=== PATIENT | female | born 1995 | race Hispanic/Latino ===

== ENCOUNTER 2019-04-29 06:12 | Emergency (ER) | payer BC, OTHER ==
[2019-04-29] MEDS ORDERED: PROMETHAZINE 25 MG/ML VIAL ONE (06:36)
[2019-04-29] MEDS ORDERED: NA CHLORIDE 0.9% 1,000 ML ONE (06:36)
[2019-04-29 06:38] LABS: Urine Blood 2+ (NEG); Urine Glucose NEGATIVE (NEG); Urine Protein 2+ (NEG); Urine Specific Gravity >1.030 (1.005-1.030); Urine pH 5.5 (5.0-7.0)
[2019-04-29 06:44] LABS: Urine Bacteria >50 /HPF (<20); Urine Culture Reflex Order NOT NEEDED; Urine RBC <5 /HPF (NONE SEEN)
[2019-04-29] MEDS ORDERED: CEFTRIAXONE/SWI 1gm 1 GM/10 ML SYR ONE (06:55)
[2019-04-29 06:58] LABS: Absolute Lymphocytes (CBC) 0.6 K/uL (0.7-4.9); Basophils % 0.2 % (0-1.3); Hematocrit 37.6 % (36.0-45.0); Lymphocytes % 6.6 % (15.3-44.8); MPV 8.5 fL (7.6-11.3)
[2019-04-29 07:18] LABS: Albumin 3.6 g/dL (3.4-5.0); Bilirubin Direct 0.3 mg/dL (0-0.2); Potassium 3.5 mmol/L (3.5-5.1); Protein, Total 7.8 g/dL (6.4-8.2)
--- NOTE | 2019-04-29 07:28 | RAD REPORT ---
EXAM DESCRIPTION: US - Abdomen Exam Limited - 04/29/2019 7:19 am CLINICAL HISTORY: ABD PAIN COMPARISON: ABDOMINAL EXAM LIMITED dated 08/01/2014 FINDINGS: Gallbladder is distended. Small quantity of sludge is present collecting in the fundus. No gallstones confirmed. No wall thickening or pericholecystic fluid seen. Common bile duct is normal w ith no common duct stone identified. . IMPRESSION: Distended gallbladder with minimal quantity of sludge. No gallstones or other acute gall bladder finding. No biliary tree dilatation identified and no duct stone seen.
--- NOTE | 2019-04-29 07:51 | ER ---
Nurse's Notes [facility] Name: Amelia Shetty Age: 23 yrs Sex: Female : 1995 Arrival Date: 04/29/2019 Time: 06:15 Bed 5 Private MD: Diagnosis: Urinary tract infection, site not specified;Colic Presentation: 04/29 06:22 Presenting complaint: Patient states: diarrhea X1 day. last night pt c/o nausea and ak1 generalized weakness. pt c/o intermittent abd cramps and lower back pain. Transition of care: patient was not received from another setting of care. Onset of symptoms is unknown. Risk Assessment: Do you want to hurt yourself or someone else? Patient reports no desire to harm self or others. Initial Sepsis Screen: Does the patient meet any 2 criteria? No. Patient's initial sepsis screen is negative. Does the patient have a suspected source of infection? No. Patient's initial sepsis screen is negative. Care prior to arrival: None. 06:22 Method Of Arrival: Ambulatory ak1 06:22 Acuity: MIRANDA 3 ak1 Triage Assessment: 06:23 General: Appears in no apparent distress. Behavior is calm, cooperative. Pain: ak1 Complains of pain in epigastric area, right upper quadrant and left upper quadrant. GI: Reports upper abdominal pain, cramping, diarrhea, nausea. 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 - Social history:: Smoking status: Patient/guardian denies using tobacco. - Ebola Screening: : No symptoms or risks identified at this time. Screenin:24 Abuse screen: Denies threats or abuse. Denies injuries from another. Nutritional ak1 screening: No deficits noted. Tuberculosis screening: No symptoms or risk factors identified. Fall Risk None identified. Assessment: 06:24 General: Appears in no apparent distress. Behavior is calm, cooperative. Pain: ak1 Complains of pain in abdomen and left upper quadrant and right upper quadrant and epigastric area. Neuro: Level of Consciousness is awake, alert, obeys commands, Oriented to person, place, time, situation, Appropriate for age Back Grinder are equal bilaterally Moves all extremities. Gait is steady, Speech is normal, Facial symmetry appears normal. Cardiovascular: Capillary refill < 3 seconds Rhythm is sinus tachycardia. Cardiovascular: Respiratory: Airway is patent Respiratory effort is even, unlabored, Respiratory pattern is regular. GI: Bowel sounds present X 4 quads. Abd is soft and non tender X 4 quads. : No signs and/or symptoms were reported regarding the genitourinary system. EENT: No signs and/or symptoms were reported regarding the EENT system. Derm: No signs and/or symptoms reported regarding the dermatologic system. Musculoskeletal: Reports generalized muscle weakness last night. Vital Signs: 06:21 BP 130 / 85; Pulse 124; Resp 18; Temp 99.2(O); Pulse Ox 98% on R/A; Weight 81.65 kg ak1 (R); Height 5 ft. 3 in. (160.02 cm); Pain 10/10; 06:49 Pulse 107; Resp 16; Pulse Ox 98% on R/A; ak1 07:59 Pulse 101; Resp 16 S; Pulse Ox 100% on R/A; jl7 06:21 Body Mass Index 31.89 (81.65 kg, 160.02 cm) ak1 ED Course: 06:15 Patient arrived in ED. am2 06:[address] FNP-C is PHCP. snw 06:20 Kimberley Aldridge MD is Attending Physician. snw 06:21 Tessa Pichardo, RN is Primary Nurse. ak1 06:23 Triage completed. ak1 06:24 Patient has correct armband on for positive identification. Bed in low position. Call ak1 light in reach. Side rails up X 1. Adult w/ patient. Pulse ox on. NIBP on. 06:24 Arm band placed on Patient placed in an exam room, on a stretcher, on pulse oximetry, ak1 Patient notified of wait time. 06:48 Initial lab(s) drawn, by me, sent to lab. Urine collected: clean catch specimen, ak1 cloudy, tessa colored. Inserted saline lock: 22 gauge in right antecubital area, using aseptic technique. Blood collected. 07:21 US Abdomen Limited In Process Unspecified. EDMS 08:02 No provider procedures requiring assistance completed. IV discontinued, intact, jl7 bleeding controlled, No redness/swelling at site. Pressure dressing applied. Administered Medications: 06:48 Drug: NS 0.9% 1000 ml Route: IV; Rate: 1 bolus; Site: right antecubital; ak1 07:30 Follow up: Response: No adverse reaction; IV Intake: 1000ml jl7 07:30 Follow up: IV Status: Completed infusion jl7 06:48 Drug: Phenergan 6.25 mg Route: IVP; Site: right antecubital; ak1 06:48 Follow up: Response: No adverse reaction; Nausea is decreased ak1 06:57 Drug: Rocephin - (cefTRIAXone) 1 grams Route: IVPB; Infused Over: 30 mins; Site: right ak1 antecubital; 06:58 Follow up: IV Status: Completed infusion; IV Intake: 10ml ak1 Intake: 06:58 IV: 10ml; Total: 10ml. ak1 07:30 IV: 1000ml; Total: 1010ml. 7 Outcome: 07:50 Discharge ordered by . rene 08:01 Discharged to home ambulatory. jl7 08:01 Condition: stable 08:01 Discharge instructions given to patient, Instructed on discharge instructions, follow up and referral plans. medication usage, Demonstrated understanding of instructions, follow-up care, medications, Prescriptions given X 2. 08:02 Patient left the ED. jl7 Signatures: Dispatcher [employer] EDSD Clare Way, EDUARC VACUUM CLEANER ASSEMBLER-Csnw Tessa Pichardo RN RN ak1 Gwendolyn Bird RN RN jl7 Kellen Ríos
--- NOTE | 2019-04-29 07:52 | EDPHYS ---
Physician Documentation [facility] Name: Amelia Shetty Age: 23 yrs Sex: Female : 1995 Arrival Date: 04/29/2019 Time: 06:15 Bed 5 Private MD: ED Physician Kimberley Aldridge HPI: 04/29 07:19 This 23 yrs old Female presents to ER via Ambulatory with complaints of snw Abdominal Pain, Diarrhea. 07:19 The patient presents with abdominal pain in the right upper quadrant, that is diffuse. snw Onset: The symptoms/episode began/occurred gradually, 3 day(s) ago. The symptoms do not radiate. Associated signs and symptoms: Pertinent positives: diarrhea, nausea. The symptoms are described as crampy. Severity of pain: At its worst the pain was moderate severe. The patient has not experienced similar symptoms in the past. The patient has not recently seen a physician. LMP beginning of April. 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 - Social history:: Smoking status: Patient/guardian denies using tobacco. - Ebola Screening: : No symptoms or risks identified at this time. ROS: 07:17 Constitutional: Positive for fever, chills, weakness, negative for weight loss, Eyes: snw Negative for injury, pain, redness, and discharge, ENT: Negative for injury, pain, and discharge, Neck: Negative for injury, pain, and swelling, Cardiovascular: Negative for chest pain, palpitations, and edema, Respiratory: Negative for shortness of breath, cough, wheezing, and pleuritic chest pain, Back: Negative for injury and pain, : Negative for injury, bleeding, discharge, and swelling, MS/Extremity: Negative for injury and deformity, Skin: Negative for injury, rash, and discoloration, Neuro: Negative for headache, weakness, numbness, tingling, and seizure. Exam: 07:14 Head/Face: Normocephalic, atraumatic. Eyes: Pupils equal round and reactive to light, snw extra-ocular motions intact. Lids and lashes normal. Conjunctiva and sclera are non-icteric and not injected. Cornea within normal limits. Periorbital areas with no swelling, redness, or edema. ENT: Nares patent. No nasal discharge, no septal abnormalities noted. Tympanic membranes are normal and external auditory canals are clear. Oropharynx with no redness, swelling, or masses, exudates, or evidence of obstruction, uvula midline. Mucous membranes moist. Neck: Trachea midline, no thyromegaly or masses palpated, and no cervical lymphadenopathy. Supple, full range of motion without nuchal rigidity, or vertebral point tenderness. No Meningismus. Chest/axilla: Normal chest wall appearance and motion. Nontender with no deformity. No lesions are appreciated. 07:14 Respiratory: Lungs have equal breath sounds bilaterally, clear to auscultation and percussion. No rales, rhonchi or wheezes noted. No increased work of breathing, no retractions or nasal flaring. Back: No spinal tenderness. No costovertebral tenderness. Full range of motion. Skin: Warm, dry with normal turgor. Normal color with no rashes, no lesions, and no evidence of cellulitis. MS/ Extremity: Pulses equal, no cyanosis. Neurovascular intact. Full, normal range of motion. Neuro: Awake and alert, GCS 15, oriented to person, place, time, and situation. Cranial nerves II-XII grossly intact. Motor strength 5/5 in all extremities. Sensory grossly intact. Cerebellar exam normal. Normal gait. Psych: Awake, alert, with orientation to person, place and time. Behavior, mood, and affect are within normal limits. 07:14 Constitutional: The patient appears alert, awake, anxious, uncomfortable. 07:14 Cardiovascular: Rate: tachycardic, Rhythm: regular, Pulses: no pulse deficits are appreciated, Heart sounds: normal. 07:14 ECG was reviewed by the Attending Physician. 07:14 Abdomen/GI: Inspection: abdomen appears normal, Bowel sounds: normal, Palpation: moderate abdominal tenderness, in all quadrants, increased tenderness to right upper quad. Vital Signs: 06:21 BP 130 / 85; Pulse 124; Resp 18; Temp 99.2(O); Pulse Ox 98% on R/A; Weight 81.65 kg ak1 (R); Height 5 ft. 3 in. (160.02 cm); Pain 10/10; 06:49 Pulse 107; Resp 16; Pulse Ox 98% on R/A; ak1 07:59 Pulse 101; Resp 16 S; Pulse Ox 100% on R/A; jl7 06:21 Body Mass Index 31.89 (81.65 kg, 160.02 cm) ak1 MDM: 06:21 Patient medically screened. snw 07:51 Data reviewed: vital signs, nurses notes. Data interpreted: Pulse oximetry: on room air snw is 98 %. Interpretation: normal. Counseling: I had a detailed discussion with the patient and/or guardian regarding: the historical points, exam findings, and any diagnostic results supporting the discharge/admit diagnosis, the presence of at least one elevated blood pressure reading (>120/80) during this emergency department visit, lab results, the need for outpatient follow up, to return to the emergency department if symptoms worsen or persist or if there are any questions or concerns that arise at home. Response to treatment: the patient's symptoms have markedly improved after treatment, and as a result, I will discharge patient. Special discussion: Based on the patient's Hx, exam, and Dx evaluation, there is no indication for emergent surgery or inpatient Tx. It is understood by the patient/guardian that if the Sx's persist or worsen they need to return immediately for re-evaluation. I have referred the patient to see his PCP for further evaluation of high blood pressure. Based on the history and exam findings, there is no indication for further emergent testing or inpatient evaluation. I discussed with the patient/guardian the need to see the primary care provider for further evaluation of the symptoms. 04/29 06:31 Order name: Basic Metabolic Panel; Complete Time: 07:20 snw 04/29 06:31 Order name: CBC with Diff snw 04/29 06:31 Order name: Hepatic Function; Complete Time: 07:20 snw 04/29 06:31 Order name: Lipase; Complete Time: 07:20 snw 04/29 06:31 Order name: Urine Microscopic Only; Complete Time: 06:49 snw 04/29 06:33 Order name: Urine Dipstick--Ancillary (enter results); Complete Time: 06:42 ag4 04/29 06:31 Order name: IV Saline Lock; Complete Time: 06:50 snw 04/29 06:31 Order name: Labs collected and sent; Complete Time: 06:50 snw 04/29 06:31 Order name: US Abdomen Limited; Complete Time: 07:34 snw 04/29 06:31 Order name: Urine Test (obtain specimen); Complete Time: 06:34 snw 04/29 06:33 Order name: Urine --Ancillary (enter results); Complete Time: 06:42 ag4 04/29 06:31 Order name: Urine Dipstick-Ancillary (obtain specimen); Complete Time: 06:34 snw Administered Medications: 06:48 Drug: NS 0.9% 1000 ml Route: IV; Rate: 1 bolus; Site: right antecubital; ak1 07:30 Follow up: Response: No adverse reaction; IV Intake: 1000ml jl7 07:30 Follow up: IV Status: Completed infusion jl7 06:48 Drug: Phenergan 6.25 mg Route: IVP; Site: right antecubital; ak1 06:48 Follow up: Response: No adverse reaction; Nausea is decreased ak1 06:57 Drug: Rocephin - (cefTRIAXone) 1 grams Route: IVPB; Infused Over: 30 mins; Site: right ak1 antecubital; 06:58 Follow up: IV Status: Completed infusion; IV Intake: 10ml ak1 Disposition: 04/30 07:29 Co-signature as Attending Physician, Kimberley Aldridge MD. ma2 Disposition: 04/29/19 07:50 Discharged to Home. Impression: Urinary tract infection, site not specified, Colic. - Condition is Stable. - Discharge Instructions: Biliary Colic, Adult, Fever, Adult, Urinary Tract Infection, Adult, Rehydration, Adult, [place] Diet. - Prescriptions for Augmentin 875- 125 mg Oral Tablet - take 1 tablet by ORAL route every 12 hours for 10 days; 20 tablet. promethazine 25 mg Oral Tablet - take 1 tablet by ORAL route every 6 hours As needed; 20 tablet. - Work release form, Medication Reconciliation Form, Thank You Letter, Antibiotic Education, Prescription Opioid Use, Family Work Release form. - Follow up: Private Physician; When: 2 - 3 days; Reason: Recheck today's complaints, Continuance of care, Re-evaluation by your physician. Follow up: Emergency Department; When: As needed; Reason: Worsening of condition. Signatures: Dispatcher [employer] EDMS Clare Way, ANAESTHESIOLOGIST-C ANAESTHESIOLOGIST-Csnw Alida Pichardo, RN RN ak1 Gwendolyn Bird RN RN jl7 Kimberley Aldridge MD MD ma2 Corrections: (The following items were deleted from the chart) 04/29 08:02 07:50 04/29/2019 07:50 Discharged to Home. Impression: Urinary tract infection, site jl7 not specified; Colic. Condition is Stable. Forms are Medication Reconciliation Form, Thank You Letter, Antibiotic Education, Prescription Opioid Use. Follow up: Private Physician; When: 2 - 3 days; Reason: Recheck today's complaints, Continuance of care, Re-evaluation by your physician. Follow up: Emergency Department; When: As needed; Reason: Worsening of condition. snw
[2019-04-29 08:37] VITALS: BP 130/85; TEMP 99.2
[2019-04-29 08:39] VITALS: O2SAT 100
[2019-04-29 11:11] LABS: Blood Morphology Comment NOT SEEN (NOT SEEN); Platelet Estimate ADEQ; Urine White Blood Cell Casts OK
== END 2019-04-29 08:02 | disposition home or self-care (01) ==
LOC: ER 06:12
DX: N39.0 Urinary tract infection, site not specified (principal); R10.84 Generalized abdominal pain
CPT/HCPCS: 96361; 85025; 80048; 36415; 81025; 80076; 83690; 76705; 96375; 96374; 99284; J2550; J0696; J7030; 81003; 81015